=== PATIENT | female | born 1950 | race Caucasian/White ===

== ENCOUNTER 2018-02-04 09:04 | Outpatient (CLI) | payer OTHER | END 2018-02-04 17:22 | disposition home or self-care (01) | LOC: LAB 09:04 | DX: N39.0 Urinary tract infection, site not specified (principal) ==

== ENCOUNTER → 2018-02-16 14:04 | Outpatient (CLI) | payer OTHER | END | disposition home or self-care (01) | LOC: LAB 14:04 | DX: N30.00 Acute cystitis without hematuria (principal); N30.11 Interstitial cystitis (chronic) with hematuria ==

== ENCOUNTER 2018-02-18 14:30 | Outpatient (CLI) | payer OTHER | END 2018-02-18 15:58 | disposition home or self-care (01) | LOC: SONOGRAMA 14:30 | DX: R10.2 Pelvic and perineal pain (principal) ==

== ENCOUNTER 2018-09-08 12:34 | Outpatient (CLI) | payer OTHER | END 2018-09-08 13:12 | disposition home or self-care (01) | LOC: RAD 12:34 | DX: J45.41 Moderate persistent asthma with (acute) exacerbation (principal) ==

== ENCOUNTER 2018-12-28 07:47 | Outpatient (CLI) | payer OTHER | END 2018-12-28 16:35 | disposition home or self-care (01) | LOC: LAB 07:47 | DX: D50.8 Other iron deficiency anemias (principal); I10 Essential (primary) hypertension ==

== ENCOUNTER 2018-12-28 08:48 | Outpatient (CLI) | payer OTHER | END 2018-12-28 08:51 | disposition home or self-care (01) | LOC: RAD 08:48 | DX: Z12.31 Encounter for screening mammogram for malignant neoplasm of breast (principal); Z87.898 Personal history of other specified conditions; N60.11 Diffuse cystic mastopathy of right breast; N60.12 Diffuse cystic mastopathy of left breast; M25.561 Pain in right knee; M25.562 Pain in left knee ==

== ENCOUNTER → 2018-12-28 | Outpatient (CLI) | payer OTHER | END | disposition home or self-care (01) | LOC: NUCLEAR 09:55 | DX: M81.0 Age-related osteoporosis without current pathological fracture (principal) ==

== ENCOUNTER 2020-10-15 11:56 | Outpatient (CLI) | payer OTHER | END 2020-10-15 15:55 | disposition home or self-care (01) | LOC: PPH VACUNA 11:56 | PROVIDERS: ATTEND Emergency Medicine Pediatric Emergency Medicine | DX: Z23 Encounter for immunization (principal) ==

== ENCOUNTER 2020-12-03 06:12 | Outpatient (CLI) | payer OTHER | END 2020-12-03 07:26 | disposition home or self-care (01) | LOC: LAB 06:12 | PROVIDERS: ATTEND Family Medicine | DX: D50.8 Other iron deficiency anemias (principal); E55.9 Vitamin D deficiency, unspecified; N30.20 Other chronic cystitis without hematuria; I10 Essential (primary) hypertension; E78.00 Pure hypercholesterolemia, unspecified; E03.8 Other specified hypothyroidism; Z12.11 Encounter for screening for malignant neoplasm of colon ==

== ENCOUNTER 2021-01-01 09:31 | Outpatient (CLI) | payer OTHER | END 2021-01-01 09:32 | disposition home or self-care (01) | LOC: NUCLEAR 09:31 | PROVIDERS: ATTEND Family Medicine | DX: M81.0 Age-related osteoporosis without current pathological fracture (principal) ==

== ENCOUNTER 2021-01-01 12:18 | Outpatient (CLI) | payer OTHER | END 2021-01-01 12:26 | disposition home or self-care (01) | LOC: MAMO-SONO 12:18 | PROVIDERS: ATTEND Family Medicine | DX: Z12.31 Encounter for screening mammogram for malignant neoplasm of breast (principal); N60.11 Diffuse cystic mastopathy of right breast; N60.12 Diffuse cystic mastopathy of left breast ==

== ENCOUNTER → 2021-03-08 07:25 | Outpatient (CLI) | payer OTHER | END | disposition home or self-care (01) | LOC: LAB 07:25 | PROVIDERS: ATTEND Emergency Medicine Pediatric Emergency Medicine | DX: Z03.818 Encounter for observation for suspected exposure to other biological agents ruled out (principal) ==

== ENCOUNTER 2021-05-06 16:36 | Outpatient (CLI) | payer OTHER | END 2021-05-06 16:52 | disposition home or self-care (01) | LOC: LAB 16:36 | DX: D50.8 Other iron deficiency anemias (principal); D51.8 Other vitamin B12 deficiency anemias; D35.2 Benign neoplasm of pituitary gland; E22.1 Hyperprolactinemia; B18.2 Chronic viral hepatitis C; J45.998 Other asthma; E55.9 Vitamin D deficiency, unspecified; E23.0 Hypopituitarism; R89.1 Abnormal level of hormones in specimens from other organs, systems and tissues; D69.1 Qualitative platelet defects; E03.8 Other specified hypothyroidism; K76.89 Other specified diseases of liver; R74.02 Elevation of levels of lactic acid dehydrogenase [LDH]; I10 Essential (primary) hypertension ==

== ENCOUNTER 2021-05-21 08:00 | Outpatient (CLI) | payer OTHER | END 2021-05-21 08:30 | disposition home or self-care (01) | LOC: PPH VACUNA 08:00 | DX: Z23 Encounter for immunization (principal) ==

== ENCOUNTER 2021-05-26 13:06 | Outpatient (CLI) | payer OTHER | END 2021-05-26 13:14 | disposition home or self-care (01) | LOC: SONOGRAMA 13:06 → MAMO-SONO 13:15 | DX: N28.89 Other specified disorders of kidney and ureter (principal); N30.10 Interstitial cystitis (chronic) without hematuria; R31.29 Other microscopic hematuria ==

== ENCOUNTER 2021-10-28 11:03 | Outpatient (CLI) | payer OTHER | END 2021-10-28 13:24 | disposition home or self-care (01) | LOC: MRI 11:03 | PROVIDERS: ATTEND Physical Medicine & Rehabilitation | DX: M54.59 Other low back pain (principal) | CPT/HCPCS: 72148 ==

== ENCOUNTER 2022-01-21 08:00 | Outpatient (CLI) | payer OTHER | END 2022-01-21 08:30 | disposition home or self-care (01) | LOC: PPH VACUNA 08:00 | PROVIDERS: ATTEND Emergency Medicine Pediatric Emergency Medicine | DX: Z23 Encounter for immunization (principal) ==

== ENCOUNTER 2022-01-23 13:01 | Outpatient (CLI) | payer OTHER | END 2022-01-23 13:12 | disposition home or self-care (01) | LOC: SONOGRAMA 13:01 | PROVIDERS: ATTEND Student in an Organized Health Care Education/Training Program | DX: N39.41 Urge incontinence (principal); R10.2 Pelvic and perineal pain ==

== ENCOUNTER 2022-01-26 11:21 | Outpatient (CLI) | payer OTHER | END 2022-01-26 11:24 | disposition home or self-care (01) | LOC: RAD 11:21 | DX: Z01.89 Encounter for other specified special examinations (principal) ==

== ENCOUNTER 2022-06-17 08:58 | Outpatient (CLI) | payer OTHER | END 2022-06-17 09:03 | disposition home or self-care (01) | LOC: PPH VACUNA 08:58 | PROVIDERS: ATTEND Emergency Medicine Pediatric Emergency Medicine | DX: Z23 Encounter for immunization (principal) | CPT/HCPCS: 90686; G0008 ==

== ENCOUNTER 2022-06-17 09:07 | Outpatient (CLI) | payer OTHER | END 2022-06-17 09:17 | disposition home or self-care (01) | LOC: PPH VACUNA 09:07 | PROVIDERS: ATTEND Emergency Medicine Pediatric Emergency Medicine | DX: Z23 Encounter for immunization (principal) ==

== ENCOUNTER 2024-01-05 08:20 | Outpatient (CLI) | payer OTHER | END 2024-01-05 08:26 | disposition home or self-care (01) | LOC: MRI 08:20 | PROVIDERS: ATTEND Internal Medicine Cardiovascular Disease | DX: M79.672 Pain in left foot (principal) | CPT/HCPCS: 73721 ==

== ENCOUNTER 2024-12-26 09:55 | Outpatient (CLI) | payer OTHER | END 2024-12-26 10:01 | disposition home or self-care (01) | LOC: MRI 09:55 | PROVIDERS: ATTEND Internal Medicine Cardiovascular Disease | DX: M54.50 Low back pain, unspecified (principal) | CPT/HCPCS: 72148 ==

== ENCOUNTER 2025-02-21 04:21 | Emergency (ER) | payer OTHER ==
[~2025-02-21] VITALS: Ht 157.5 cm; Wt 68.0 kg
[2025-02-21] MEDS ORDERED: VALIUM (04:29)
[2025-02-21] MEDS ORDERED: LAMICTAL5 MG (04:30)
[2025-02-21] MEDS ORDERED: WELLBUTRIN SR100 MG (04:30)
[2025-02-21] MEDS ORDERED: SINGULAIR4 M1 (04:30)
[2025-02-21] MEDS ORDERED: LIPITOR40 M1 (04:31)
[2025-02-21] MEDS ORDERED: COZAAR25 MG (04:31)
[2025-02-21] MEDS ORDERED: NASAL MIST126 ML (04:31)
[2025-02-21] MEDS ORDERED: BUDESONIDE 0.5 MG/2 ML AMPUL.NEB IH STA (05:22)
[2025-02-21] MEDS ORDERED: ALBUTEROL SULFATE 3 ML/2.5 MG AMPUL.NEB IH SCH (05:30)
[2025-02-21] MEDS ORDERED: ALBUTEROL SULFATE 3 ML/2.5 MG AMPUL.NEB IH ONE (06:32)
[2025-02-21] MEDS ORDERED: BUDESONIDE 0.5 MG/2 ML AMPUL.NEB IH ONE (06:32)
[2025-02-21 06:53] LABS: COVID-19 AG NEGATIVE (NEGATIVE); INFLUENZA A AG NEGATIVE (NEGATIVE)
[2025-02-21] MEDS ORDERED: ALBUTEROL2.5 MG/3 M IH (07:11)
[2025-02-21] MEDS ORDERED: BUDESONIDE0.5 MG/2 M IH (07:11)
[2025-02-21] MEDS ORDERED: SYMBICORT 16010.2 GM IH (07:13)
== END 2025-02-21 07:29 ==
LOC: ER 04:27
PROVIDERS: General Practice
DX: J98.01 Acute bronchospasm (principal); Z20.822 Contact with and (suspected) exposure to COVID-19